=== PATIENT | female | born 1965 | race Caucasian/White ===

== ENCOUNTER 2022-03-11 13:58 | Inpatient (IN) ==
[2022-03-11 17:39] LABS: Basophils % 0.4 %; Eosinophils # 0.2 K/mcL (0.0-0.6); Eosinophils % 1.7 %; Hematocrit 47.2 % (35.3-44.9); Hemoglobin 15.4 g/dL (11.5-15.4); Immature Granulocytes % 0.2 % (0-4); Lymphocytes # 2.3 K/mcL (0.6-4.6); Mean Corpuscular HGB Conc 32.6 g/dL (31.6-35.5); Mean Corpuscular Hemoglobin 28.9 pg (28.0-33.3); Mean Corpuscular Volume 88.6 fL (83.0-100.0); Mean Platelet Volume 11.1 fL (9.4-12.4); Monocytes # 0.7 K/mcL (0.0-1.3); Monocytes % 7.5 %; Neutrophils # 5.7 K/mcL (1.6-8.9); Platelet Count 289 K/mcL (140-400); Red Blood Count 5.33 M/mcL (3.82-4.97); Red Cell Distribution Width 13.6 % (11.5-14.5); Segmented Neutrophils % 64.2 %; White Blood Count 8.9 K/mcL (4.3-11.1)
[2022-03-11 18:01] LABS: Albumin 4.5 g/dL (3.5-5.7); Albumin/Globulin Ratio 1.5 (1.1-2.2); Bilirubin,Direct 0.1 mg/dL (0.0-0.2); Bilirubin,Indirect 0.4 mg/dL (0.0-1.0); Bilirubin,Total 0.5 mg/dL (0.3-1.0); Calcium 9.9 mg/dL (8.6-10.3); Globulin 3.1 g/dL (2.4-3.5); Potassium 3.8 mEq/L (3.5-5.1); Total Protein 7.6 g/dL (6.4-8.9)
[2022-03-11 18:09] LABS: Troponin I 0.19 ng/mL (< 0.04)
[2022-03-11] MEDS ORDERED: Iopamidol - 370 500 ML MLS IVP ONE (18:54)
[2022-03-11] MEDS ORDERED: *HR* Heparin 5,000 UNIT/ML VIAL IVP PRN ×2 (21:57)
[2022-03-11] MEDS ORDERED: *HR* Heparin 5,000 UNIT/ML VIAL IVP ONE (21:57)
[2022-03-11] MEDS: Heparin 25,000UNIT/250ML 1/2NS 25,000 UNIT/250 ML IV.SOLN IVC SCH (22:24)
[2022-03-11] MEDS ORDERED: D5% in Water 1,000 ML IVC PRN (22:52)
[2022-03-11] MEDS ORDERED: *HR* Dextrose 50 % in Water (Syg) 50 ML SYRINGE IVP PRN (22:52)
[2022-03-11] MEDS ORDERED: Dextrose Gel 15 GM/37.5 ML TUBE PO PRN ×2 (22:52)
[2022-03-11] MEDS ORDERED: *HR* LORazepam 2 MG/ML VIAL IVP PRN (23:10)
[2022-03-12] MEDS ORDERED: Ondansetron ODT 4 MG TAB.RAPDIS SL PRN (00:31)
[2022-03-12] MEDS ORDERED: Melatonin 3 MG TABLET PO PRN (00:31)
[2022-03-12] MEDS ORDERED: Naloxone 0.4 MG/ML INJ IVP PRN (00:31)
[2022-03-12 01:12] LABS: Amphetamine Screen,Urine Negative ng/mL (Cutoff=1000); Barbiturate Screen,Urine Negative ng/mL (Cutoff=200); Benzodiazepines Screen,Urine Negative ng/mL (Cutoff=200); Cannabinoid Screen,Urine Negative ng/mL (Cutoff = 50); Cocaine Screen,Urine Negative ng/mL (Cutoff= 300); Opiate Screen,Urine Negative ng/mL (Cutoff=300); Phencyclidine Screen,Urine Negative ng/mL (Cutoff=25)
[2022-03-12] MEDS: carvediloL 6.25 MG TABLET PO SCH ×3 (01:14→17:18)
[2022-03-12 01:58] LABS: Troponin I 0.12 ng/mL (< 0.04)
[2022-03-12] MEDS ORDERED: *HR* HYDROcodone/Acet 5/325 mg TABLET PO ONE (05:54)
[2022-03-12] MEDS: Insulin LISPRO 300 UNITS/3 ML VIAL SUBQ SCH ×3 (07:25→16:53)
[2022-03-12] MEDS: FLUoxetine 20 MG CAPSULE PO SCH (08:30)
[2022-03-12] MEDS ORDERED: Aspirin Enteric Coated 81 MG Tablet PO SCH (09:00)
[2022-03-12 10:44] LABS: Thyroid Stimulating Hormone 0.136 mcIU/mL (0.340-5.600)
[2022-03-12] MEDS ORDERED: Gadolinium Contrast Agent (WT Based) IV PRN (11:09)
[2022-03-12] MEDS ORDERED: *HR* LORazepam 2 MG/ML VIAL IVP ONE (13:18)
[2022-03-12] MEDS: Heparin 25,000UNIT/250ML 1/2NS 25,000 UNIT/250 ML IV.SOLN IVC SCH (19:56)
[2022-03-12] MEDS ORDERED: Insulin LISPRO 300 UNITS/3 ML VIAL SUBQ SCH (21:00)
[2022-03-12] MEDS: *HR* HYDROcodone/Acet 10/325 mg TABLET PO PRN (22:11)
[2022-03-12] MEDS: Gabapentin 400 MG CAPSULE PO SCH (22:11)
[2022-03-12] MEDS ORDERED: carvediloL 6.25 MG TABLET PO SCH (23:46)
[2022-03-13 03:00] LABS: BUN/Creatinine Ratio 25 (6-26); Blood Urea Nitrogen 15 mg/dL (6-20); Calcium 8.9 mg/dL (8.6-10.3); Carbon Dioxide 25 mEq/L (23-29); Chloride 104 mEq/L (98-107); Glucose 99 mg/dL (70-105); Magnesium 1.9 mg/dL (1.6-2.6); Osmolality,Calculated 287 (280-300); Potassium 3.4 mEq/L (3.5-5.1); Sodium 138 mEq/L (136-145)
[2022-03-13 03:14] LABS: Thyroid Stimulating Hormone 0.157 mcIU/mL (0.340-5.600)
[2022-03-13] MEDS: *HR* HYDROcodone/Acet 10/325 mg TABLET PO PRN (05:42)
[2022-03-13] MEDS: Insulin LISPRO 300 UNITS/3 ML VIAL SUBQ SCH ×3 (08:25→18:12)
[2022-03-13] MEDS ORDERED: Aspirin Enteric Coated 81 MG Tablet PO SCH (09:00)
[2022-03-13] MEDS ORDERED: Isosorbide MONOnitrate (24 HR) 30 MG TAB.ER.24H PO SCH (09:00)
[2022-03-13] MEDS: Gabapentin 400 MG CAPSULE PO SCH ×2 (09:45→16:15)
[2022-03-13] MEDS: FLUoxetine 20 MG CAPSULE PO SCH (09:46)
[2022-03-13] MEDS: carvediloL 6.25 MG TABLET PO SCH ×2 (09:54→16:15)
[2022-03-13] MEDS: Heparin 25,000UNIT/250ML 1/2NS 25,000 UNIT/250 ML IV.SOLN IVC SCH (12:44)
[2022-03-13] MEDS ORDERED: Iopamidol - 370 200 ML INFUS..BTL ONE (13:05)
[2022-03-13] MEDS ORDERED: 0.9 % Sodium Chloride 2,000 ML ONE (13:05)
[2022-03-13] MEDS ORDERED: Heparin 1,000 UNITS/500 mL 500 ML ONE (13:05)
[2022-03-13] MEDS ORDERED: Nitroglycerin 1,000 MCG/5 ML VIAL IV ONE (13:05)
[2022-03-13] MEDS ORDERED: *HR* Heparin 10,000 UNIT/10 ML VIAL ONE (13:05)
[2022-03-13] MEDS ORDERED: *HR* Midazolam HCl 2 MG/2 ML VIAL ONE ×2 (13:18→13:55)
[2022-03-13] MEDS ORDERED: *HR* FentaNYL (PF) 100 MCG/2 ML VIAL ONE (13:18)
[2022-03-13] MEDS ORDERED: 0.9 % Sodium Chloride 1,000 ML IVC SCH (14:30)
[2022-03-13 16:22] VITALS: BP 119/68; PULSE 73; TEMP 97.8; O2SAT 98
== END 2022-03-13 19:26 | disposition home or self-care (01) | DRG 190 ==
LOC: 2ANU 13:58 → EMEROOARM 13:58 → SUATTDRO 22:47 → 2ANU 23:33
PROVIDERS: ADMIT Internal Medicine; ATTEND Student in an Organized Health Care Education/Training Program